=== PATIENT | female | born 2005 | race Caucasian/White ===

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

== ENCOUNTER 2024-04-22 18:21 | Emergency (ER) | payer OTHER ==
[2024-04-22] MEDS ORDERED: Ibuprofen 200 MG TAB ONE (19:43)
[2024-04-22] MEDS ORDERED: Ondansetron PF 4 MG/2 ML Vial ONE (20:42)
[2024-04-22] MEDS ORDERED: Ketorolac Tromethamine 30 MG (1 mL) VIAL ONE (20:42)
== END 2024-04-22 22:07 | disposition home or self-care (01) ==
LOC: CSHERS 18:21
DX: J10.1 Influenza due to other identified influenza virus with other respiratory manifestations (principal)
CPT/HCPCS: 87428; 96374; J1885; J2405